=== PATIENT | female | born 1980 | race Caucasian/White ===

== ENCOUNTER 2022-03-01 12:46 | Emergency (ER) | payer SELFPAY ==
[~2022-03-01] VITALS: Ht 165.1 cm; Wt 70.0 kg
[2022-03-01] MEDS ORDERED: ONDA4TAB12 PO (18:20)
[2022-03-01] MEDS ORDERED: MECL-159 PO (18:20)
[2022-03-01] MEDS ORDERED: diphenhydrAMINE 25mg capsule PO ONE (18:25)
[2022-03-01] MEDS ORDERED: meclizine 12.5mg tablet PO ONE (18:25)
[2022-03-01 18:39] VITALS: BP 120/72
[2022-03-01] MEDS ORDERED: ondansetron/PF 4mg/2ml inj IM ONE (18:40)
== END 2022-03-01 19:23 | disposition home or self-care (01) ==
LOC: ER 12:47
DX: R42 Dizziness and giddiness (principal); E86.0 Dehydration; R11.2 Nausea with vomiting, unspecified; Z79.899 Other long term (current) drug therapy
CPT/HCPCS: 96372; 99283; J2405; J8597; Q0163